=== PATIENT | male | born 1945 | race Hispanic/Latino ===

== ENCOUNTER → 2024-09-07 | Outpatient (CLI) | payer OTHER, MEDICARE ==
[~2024-09-07] MED LIST: ATOR10 PO; DOXY100T2 PO; LISI5TAB21 PO
--- NOTE | 2024-09-07 11:16 | HMCIMG ---
US AORTA LIMITED REASON: nicotine dependence, unspecified COMPARISON: None TECHNIQUE: Screening exam was performed of the aorta and common iliac arteries. FINDINGS: There is normal appearance of the aorta. There is no evidence of aneurysm or stenosis. Common iliac arteries appear normal as well. IMPRESSION: 1. Normal findings on screening aorta sonogram, no aneurysm or stenosis.
== END | disposition home or self-care (01) ==
LOC: RAH 07:04
PROVIDERS: ATTEND Internal Medicine
DX: F17.200 Nicotine dependence, unspecified, uncomplicated (principal)
CPT/HCPCS: 76775

== ENCOUNTER → 2024-12-03 | Outpatient (CLI) | payer OTHER, MEDICAID ==
--- NOTE | 2024-12-03 13:17 | HMCIMG ---
Exam Type: CT ABD/PEL WO CON RENAL/APPY Clinical Information: RLQ PAIN Comparison: None Contrast: 100 cc's Isovue 370 IV, no complications or adverse reactions CT Dose Index (CTDI): 31.60 mGy Dose Length Product (DLP): 1740.80 total mGy-cm Findings: No evidence of nephro or ureterolithiasis is found. No hydronephrosis or ureteral dilatation is seen. The lung bases are clear. The stomach is unremarkable. It shows no wall thickening. No gross ulceration is seen. It is not overly distended. There are no surrounding inflammatory changes. No wall lesions are identified to suggest cancer. The spleen is unremarkable. It is not enlarged. The pancreas shows normal anatomy. It is not fatty replaced. It shows no lesions. The pancreatic duct is not dilated. The gallbladder is unremarkable. It shows no cholelithiasis. The gallbladder wall is normal in thickness. There is no pericholecystic fluid. The is no acute or chronic inflammation noted. The adrenal glands are unremarkable. There is no enlargement. No lesions are noted. The liver is unremarkable except for simple cysts of the right lobe and lateral aspect which is stable since exam of September 10, 2024.. It shows no focal masses. The appendix is unremarkable. It shows no evidence of inflammation. No appendicolith is seen. The small bowel is unremarkable. There is no evidence of dilatation to suggest obstruction. No evidence of adynamic ileus is seen. There is no small bowel wall thickening to suggest enteritis. There is diverticulosis. There is no evidence of acute inflammation to suggest diverticulitis. The colon is otherwise unremarkable. The urinary bladder is unremarkable. There is no wall thickening to suggest tumor or inflammation. There are no intraluminal calculi. There are no diverticula. There is no evidence of chronic bladder outlet obstruction. There is no evidence of urinary bladder distention to suggest urinary retention. The other pelvic structures are unremarkable. The bony and vascular structures are unremarkable for the patient's age. IMPRESSION: Normal appendix. No acute pathology. This study was performed using dose reduction techniques to include automated exposure control and/or adjustment of the mA and/or kV according to patient size.
== END | disposition home or self-care (01) ==
LOC: RAH 11:43
PROVIDERS: ATTEND Family Medicine
DX: K57.90 Diverticulosis of intestine, part unspecified, without perforation or abscess without bleeding (principal); K76.89 Other specified diseases of liver; R10.31 Right lower quadrant pain; E86.0 Dehydration; D72.829 Elevated white blood cell count, unspecified; R82.998 Other abnormal findings in urine
CPT/HCPCS: 74176